=== PATIENT | female | born 1940 | race Caucasian/White ===

== ENCOUNTER 2016-09-16 10:23 | Emergency (ER) | payer MEDICARE, BC ==
[~2016-09-16] VITALS: Ht 172.7 cm; Wt 70.0 kg
[2016-09-16] MEDS ORDERED: SODIUM CHLORIDE FLUSH 10ML SYR IVF ONE (11:00)
[2016-09-16] MEDS ORDERED: DILT120T3 PO (11:54)
[2016-09-16] MEDS ORDERED: ASPI-515 PO (11:54)
[2016-09-16] MEDS ORDERED: METO50TA82 PO (11:54)
[2016-09-16] MEDS ORDERED: ROSU10TA PO (11:54)
[2016-09-16] MEDS ORDERED: LEVO112T4 PO (11:54)
[2016-09-16] MEDS ORDERED: RANI150T4 PO (11:54)
[2016-09-16 12:00] LABS: ASPARTATE AMINO TRANSFERASE 15 U/L (15-37); BLOOD UREA NITROGEN 20 mg/dL (7-18)
[2016-09-16 12:44] LABS: IS PT STATUS REG ER OR PRE ER? YES
[2016-09-16 14:09] VITALS: BP 144/74
== END 2016-09-16 14:11 | disposition home or self-care (01) ==
LOC: ED 11:11
DX: M94.0 Chondrocostal junction syndrome [Tietze] (principal); I25.10 Atherosclerotic heart disease of native coronary artery without angina pectoris; I10 Essential (primary) hypertension; E78.5 Hyperlipidemia, unspecified; R09.1 Pleurisy
CPT/HCPCS: 36415; 80053; 84484; 85025; 85610; 85730; 93005

== ENCOUNTER 2018-02-08 17:13 | Emergency (ER) | payer BC, MEDICARE ==
[~2018-02-08] VITALS: Ht 172.7 cm; Wt 68.2 kg
[~2018-02-08 17:13] MED LIST: ASPI-515 PO; DILT120T3 PO; LEVO112T4 PO; METO50TA82 PO; RANI150T4 PO; ROSU10TA PO
[2018-02-08] MEDS ORDERED: ASPIRIN 81 MG TABLET CHEW PO ONE (17:30)
[2018-02-08] MEDS ORDERED: ASPIRIN 81 MG TABLET CHEW ONE (17:31)
[2018-02-08] MEDS ORDERED: ATOR-2 PO (17:44)
[2018-02-08 17:49] LABS: BASOPHILS # (AUTO) 0.04 x10^3/uL (0-0.1); BASOPHILS % (AUTO) 0 % (0-1); EOSINOPHILS # (AUTO) 0.14 x10^3/uL (0-0.4); EOSINOPHILS % (AUTO) 1 % (1-7); LYMPHOCYTES # (AUTO) 2.19 x10^3/uL (1-3.4); LYMPHOCYTES % (AUTO) 18 % (22-44); MD NO; MEAN CORPUSCULAR HEMOGLOBIN 30.2 pg (27.0-34.8); MEAN CORPUSCULAR HGB CONC 32.7 g/dL (32.4-35.8); MEAN CORPUSCULAR VOLUME 92.3 fL (80-100); MEAN PLATELET VOLUME 8.5 fL (7.4-10.4); MONOCYTES # (AUTO) 0.47 x10^3/uL (0.2-0.8); MONOCYTES % (AUTO) 4 % (2-9); NEUTROPHILS # (AUTO) 9.06 x10^3/uL (1.8-6.8); NEUTROPHILS % (AUTO) 76 % (42-75); PLATELET COUNT 256 x10^3/uL (130-400); RED BLOOD COUNT 4.48 x10^6/uL (3.82-5.3); RED CELL DISTRIBUTION WIDTH 12.8 % (9.6-15.2)
[2018-02-08 17:59] LABS: ALBUMIN 4.1 g/dL (3.4-5.0); ANION GAP 11 mmol/L (5-15); CALCIUM 9.2 mg/dL (8.5-10.1); CHLORIDE 110 mmol/L (98-107)
[2018-02-08 18:05] LABS: CREATININE 1.39 mg/dL (0.55-1.02); TROPONIN I < 0.015 ng/mL (0.000-0.045)
[2018-02-08 20:21] LABS: MICROSCOPIC AUTO
[2018-02-08 20:22] LABS: CULTURE INDICATED? YES
[2018-02-08 20:40] VITALS: BP 150/98
== END 2018-02-08 20:47 | disposition home or self-care (01) ==
LOC: ED 20:38
DX: R41.0 Disorientation, unspecified (principal); I10 Essential (primary) hypertension; E07.9 Disorder of thyroid, unspecified; E78.5 Hyperlipidemia, unspecified; K21.9 Gastro-esophageal reflux disease without esophagitis; I25.10 Atherosclerotic heart disease of native coronary artery without angina pectoris
CPT/HCPCS: 36415; 70551; 71046; 80048; 81001; 82040; 84484; 85025; 87077; 87086; 93005; 99285

== ENCOUNTER 2020-01-16 21:03 | Observation (INO) | payer MEDICARE ==
[~2020-01-16] VITALS: Ht 172.7 cm; Wt 72.8 kg
[~2020-01-16 21:03] MED LIST changes: +ATOR-2 PO; -ROSU10TA PO; +ROSU10TA2 PO
[2020-01-16] MEDS ORDERED: ASPIRIN 81 MG TABLET CHEW PO ONE (21:30)
[2020-01-16 21:51] LABS: BASOPHILS % (AUTO) 1 % (0-1); EOSINOPHILS % (AUTO) 5 % (1-7); LYMPHOCYTES % (AUTO) 37 % (22-44); MEAN CORPUSCULAR HEMOGLOBIN 31.1 pg (27.0-34.8); MEAN CORPUSCULAR HGB CONC 34.3 g/dL (32.4-35.8); MONOCYTES % (AUTO) 8 % (2-9); NEUTROPHILS % (AUTO) 48 % (42-75); PLATELET COUNT 238 x10^3/uL (130-400); RED BLOOD COUNT 4.35 x10^6/uL (3.82-5.3)
[2020-01-16 21:59] LABS: MD NO
--- NOTE | 2020-01-16 22:00 | NUR ---
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 TO ROOM FROM LOBBY AT THIS TIME.
[2020-01-16 22:02] LABS: ALBUMIN 3.7 g/dL (3.4-5.0); ANION GAP 7 mmol/L (5-15); CALCIUM 9.1 mg/dL (8.5-10.1); CHLORIDE 107 mmol/L (98-107)
[2020-01-16 22:08] LABS: ALANINE AMINOTRANSFERASE 23 U/L (12-78); ALKALINE PHOSPHATASE 101 U/L (45-117); BILIRUBIN,TOTAL 0.8 mg/dL (0.2-1.0); CREATININE 1.95 mg/dL (0.55-1.02); TOTAL PROTEIN 7.4 g/dL (6.4-8.2); TROPONIN I < 0.015 ng/mL (0.000-0.045)
[2020-01-16] MEDS ORDERED: ASPIRIN 81 MG TABLET CHEW ONE (22:21)
[2020-01-16] MEDS: ASPIRIN 81 MG TABLET CHEW PO ONE ×2 (22:25→22:27)
--- NOTE | 2020-01-16 22:47 | NUR ---
pt stated that she had chest pain that lasted a few minutes while at home sitting down watching tv. denies any chest pain at the current time. 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
[2020-01-17] MEDS ORDERED: BISACODYL 10 MG SUPP PR PRN
[2020-01-17] MEDS ORDERED: POLYETHYLENE GLYCOL 17 GM PACKET PO PRN
[2020-01-17] MEDS ORDERED: ONDANSETRON ODT 4 MG PO PRN
[2020-01-17] MEDS ORDERED: ACETAMINOPHEN 325 MG TABLET PO PRN
[2020-01-17] MEDS ORDERED: NITROGLYCERIN 0.4 MG BOTTLE (25 TABS) SL PRN
[2020-01-17] MEDS ORDERED: morphine SULFATE 10 MG/ML, 1ML IVPush PRN
[2020-01-17 01:45] VITALS: BP 148/69
[2020-01-17 05:23] LABS: CHOL/HDL RATIO 2.8; CHOLESTEROL, TOTAL 128 mg/dL (140-239); HDL CHOL % 35 % (28-40); HDL CHOLESTEROL (DIRECT) 45 mg/dL (40-60); LDL CHOLESTEROL,CALCULATED 67 mg/dL (54-169); LDL/HDL RATIO 1.5 (0.5-3.0); TRIGLYCERIDES 82 mg/dL (50-200); TROPONIN I < 0.015 ng/mL (0.000-0.045); VLDL CHOLESTEROL 16 mg/dL (0-25)
[2020-01-17 08:27] VITALS: BP 150/72
[2020-01-17] MEDS ORDERED: DILTIAZEM 120 MG TABLET PO SCH (09:00)
[2020-01-17] MEDS ORDERED: FAMOTIDINE 10 MG TAB PO SCH (09:00)
[2020-01-17] MEDS ORDERED: SODIUM CHLORIDE FLUSH 10ML SYR IVF SCH (09:00)
[2020-01-17] MEDS ORDERED: METOPROLOL TARTRATE 50 MG TAB PO SCH (09:00)
[2020-01-17] MEDS ORDERED: SENNA/DOCUSATE TABLET PO SCH (09:00)
[2020-01-17] MEDS ORDERED: ASPIRIN 81 MG TABLET EC PO SCH (09:00)
[2020-01-17] MEDS ORDERED: LEVOTHYROXINE 112 MCG TABLET PO SCH (09:00)
[2020-01-17] MEDS ORDERED: REGADENOSON 0.4 MG/5 ML SYRINGE ONE (09:23)
[2020-01-17] MEDS ORDERED: FAMO-79 PO (09:44)
[2020-01-17] MEDS ORDERED: LISI-167 PO (09:44)
[2020-01-17 15:25] VITALS: BP 149/53
[2020-01-17] MEDS ORDERED: ATORVASTATIN 20 MG TABLET PO SCH (21:00)
== END 2020-01-17 16:35 | disposition home or self-care (01) ==
LOC: ED 23:46 → EDIP 23:55 → INTOOBSV 23:55 → 5SO 01-17 00:43 → DCLOUNGE 01-17 16:29
PROVIDERS: ADMIT Family Medicine; ATTEND Family Medicine
DX: R07.89 Other chest pain (principal); I25.10 Atherosclerotic heart disease of native coronary artery without angina pectoris; I12.9 Hypertensive chronic kidney disease with stage 1 through stage 4 chronic kidney disease, or unspecified chronic kidney disease; N18.4 Chronic kidney disease, stage 4 (severe); E78.5 Hyperlipidemia, unspecified; E03.9 Hypothyroidism, unspecified; K21.9 Gastro-esophageal reflux disease without esophagitis; N17.9 Acute kidney failure, unspecified; Z79.82 Long term (current) use of aspirin; Z79.899 Other long term (current) drug therapy; Z95.1 Presence of aortocoronary bypass graft
CPT/HCPCS: 36415; 71045; 78452; 80053; 80061; 84484; 85025; 85379; 93005; 93017; 99285; A9502; C9898; G0378; J2785

== ENCOUNTER → 2020-06-27 | Outpatient (CLI) | payer MEDICARE ==
[~2020-06-27] MED LIST changes: -ASPI-515 PO; +ASPI-963 PO; +FAMO-79 PO; +LISI-167 PO
== END | disposition home or self-care (01) ==
LOC: RAD 13:46
PROVIDERS: ATTEND Family Medicine
DX: R05 Cough (principal)
CPT/HCPCS: 71046